=== PATIENT | male | born 1990 | race African-American/Black ===

== ENCOUNTER 2016-10-07 06:56 | Day surgery (SDC) | payer OTHER ==
[2016-10-06 10:27] VITALS: BMI 18.9
[~2016-10-07] VITALS: Ht 185.4 cm; Wt 61.1 kg
[2016-10-07] VITALS (11 sets, daily range): BP systolic 99–114; BP diastolic 46–65; PULSE 55–86; RESP 16–20; Ht 185.4 cm; Wt 61.1 kg
[2016-10-07] MEDS ORDERED: CEFAZOLIN 2 GM/50 ML (PMX) 50 ML IVPB ONE (07:00)
[2016-10-07] MEDS ORDERED: LACTATED RINGER'S 1,000 ML IV* SCH (07:00)
[2016-10-07 08:20] LABS: ADD SCAN DIFF NO
[2016-10-07 08:30] LABS: BASOPHILS % 0.2 % (0.0-2.0); EOSINOPHILS # 0.1 10^3/ul (0.0-0.5); EOSINOPHILS % 1.6 % (0.0-7.0); HEMATOCRIT 39.8 % (42.0-52.0); HEMOGLOBIN 14.2 g/dl (14.0-18.0); LYMPHOCYTES # 1.3 10^3/ul (0.8-2.9); LYMPHOCYTES % 20.9 % (15.0-51.0); MEAN CORPUSCULAR HEMOGLOBIN 32.7 pg (29.0-33.0); MEAN CORPUSCULAR HGB CONC 35.7 g/dl (32.0-37.0); MEAN CORPUSCULAR VOLUME 91.7 fl (82.0-101.0); MEAN PLATELET VOLUME 9.8 fl (7.4-10.4); MONOCYTE # 0.7 10^3/ul (0.3-0.9); MONOCYTES % 11.7 % (0.0-11.0); NEUTROPHILS % 65.4 % (39.0-77.0); PLATELET COUNT 144 10^3/UL (140-415); RED BLOOD COUNT 4.34 10^6/ul (4.70-6.10); RED CELL DISTRIBUTION WIDTH 12.5 % (11.5-14.5); WHITE BLOOD COUNT 6.1 10^3/ul (4.8-10.8)
[2016-10-07 08:51] LABS: ALBUMIN 3.7 g/dl (3.3-4.9)
[2016-10-07 08:54] LABS: ALBUMIN/GLOBULIN RATIO 1.05; BILIRUBIN,INDIRECT 0.2 mg/dl (0-1.1); BILIRUBIN,TOTAL 0.2 mg/dl (0.2-1.3); TOTAL PROTEIN 7.2 g/dl (6.1-8.1)
[2016-10-07 08:55] LABS: CALCIUM 8.6 mg/dl (8.4-10.2); CREATININE 0.84 mg/dl (0.61-1.24); POTASSIUM 3.6 mmol/L (3.5-5.1)
[2016-10-07] MEDS ORDERED: PROPOFOL 20 ML ONE ×4 (08:57→10:30)
[2016-10-07] MEDS ORDERED: ROCURONIUM 50 MG INJ ONE (08:57)
[2016-10-07] MEDS ORDERED: FENTAnyl 50 MCG/ML VIAL ONE (08:57)
[2016-10-07] MEDS ORDERED: LIDOCAINE 2% (SDV) 5 ML INJ ONE (08:57)
[2016-10-07 08:58] LABS: INR 1.12; PROTIME 14.4 Sec (12.2-14.2); PT RATIO 1.1
[2016-10-07 08:59] LABS: PARTIAL THROMBOPLASTIN TIME 32.6 Sec (25.0-35.0)
--- NOTE | 2016-10-07 09:09 | HPN ---
Date/Time of Note Date/Time of Note DATE: 10/07/16 TIME: 09:08 Interval H&P Admission Note Pt. seen H&P reviewed: No system changes GOSIA SUNG MD October 07, 2016 09:09
[2016-10-07] MEDS ORDERED: BUPIVACAINE 0.25%/EPI (SDV) 30 ML INJ INJ ONE (09:15)
[2016-10-07] MEDS ORDERED: BUPIVACAINE 0.25%/EPI (SDV) 30 ML INJ ONE (09:17)
[2016-10-07] MEDS ORDERED: CEFAZOLIN 1 GM INJ ONE (09:33)
[2016-10-07] MEDS ORDERED: LACTATED RINGER'S 1,000 ML IV SCH ×2 (10:38)
[2016-10-07] MEDS ORDERED: morphine 2 MG INJ IV PRN (11:00)
[2016-10-07] MEDS ORDERED: LABETALOL HCL 20MG INJ IV PRN (11:00)
[2016-10-07] MEDS ORDERED: DIPHENHYDRAMINE 50 MG INJ IV PRN (11:00)
[2016-10-07] MEDS ORDERED: METOCLOPRAMIDE 10 MG INJ IV PRN (11:00)
[2016-10-07] MEDS ORDERED: FENTAnyl 50 MCG/ML VIAL IV PRN ×3 (11:00)
[2016-10-07] MEDS ORDERED: HYDROCODONE/APAP (5/325) TAB PO PRN ×2 (11:00)
[2016-10-07] MEDS ORDERED: MEPERIDINE 25 MG INJ IV PRN (11:00)
[2016-10-07] MEDS ORDERED: hydrALAzine 20 MG INJ IV PRN (11:00)
[2016-10-07] MEDS ORDERED: EPHEDrine SULFATE 50 MG/5 ML SYG IV PRN (11:00)
[2016-10-07] MEDS ORDERED: ONDANSETRON 4 MG INJ IV PRN ×2 (11:00)
--- NOTE | 2016-10-07 11:59 | OPR ---
DATE OF OPERATION: 10/07/2016 SURGEON: Jovani Winchester MD EYELET OPERATOR: None. ANESTHESIA: General and local. ANESTHESIOLOGIST: Dr. Luu. PREOPERATIVE DIAGNOSIS: Subcutaneous mass, left submandibular area. POSTOPERATIVE DIAGNOSES: Subcutaneous mass, left submandibular area. Pending pathology report, but originally appeared like a dermoid cyst. OPERATION PERFORMED: Excision of mass complete and closure in 2 layers. PROCEDURE: The patient was brought to the operating room, placed on operating table in supine position. Anesthesia was induced by the anesthesiologist, 2 grams of Ancef IV was given. Time-out was called. The patient was identified. Site of operation and procedure was discussed among the team. After prep and drape with Betadine and sterile draping, during the operation, a solution of 0.25% Marcaine with epinephrine was used. So first about 10 mL of this solution was injected all around the area of the mass and on top of it. Then, at the rim of the skin, an elliptical incision was made about 3 cm long and about 5 mm wide and carried gently through subcutaneous tissue. Skin closed and carried into grossly to the skin and subcutaneous tissue and dermoid. The mass was adherent to the deep dermoid. It was superiorly and inferiorly from the attachment to the wall of the mass which appeared like a cyst and eventually the whole cyst was completely mobilized and the bottom of the cyst was attached to the muscles over that. Meticulous hemostasis achieved completely. Wound was thoroughly irrigated. There was no evidence of oozing or bleeding. The wound was closed in 2 layers, deep layer and muscular approach and fascia and the skin was closed in subcuticular fashion using 4-0 Monocryl. At the end, Dermabond dressing was applied. Patient tolerated procedure well. Sponge, needle, and instrument counts reported to be correct x2. ESTIMATED BLOOD LOSS: Nil. The specimen was sent for pathologic evaluation. The patient was extubated, transferred to recovery room in stable condition. Dictated By: JOVANI BALDWIN/PRUDENCE Conf#: [id number] DID#: [id number]
--- NOTE | 2016-10-07 13:10 | OPPN ---
Date/Time of Note Date/Time of Note DATE: 10/07/16 TIME: 13:09 Post-Anesthesia Notes Post-Anesthesia Note Last documented vital signs Vital Signs Date Time Temp Pulse Resp B/P Pulse Ox O2 Delivery O2 Flow Rate FiO2 10/07/16 12:25 98.6 55 16 103/65 99 10/07/16 11:20 Room Air 10/07/16 10:45 6.0 Activity: WNL Respiratory function: WNL Cardiovascular function: WNL Mental status: Baseline Pain reasonably controlled: Yes Hydration appropriate: Yes Nausea/Vomiting absent: Yes MARIANELA DILLARD October 07, 2016 13:10
== END 2016-10-07 12:23 | disposition home or self-care (01) ==
LOC: SDS 06:56
DX: D23.39 Other benign neoplasm of skin of other parts of face (principal)
CPT/HCPCS: 11443; 12051; 80053; 85025; 85610; 85730; 88305; J0690; J3010; Z7512; Z7610